=== PATIENT | female | born 1980 | race Caucasian/White ===

== ENCOUNTER 2017-02-24 22:05 | Emergency (ER) | payer OTHER ==
[~2017-02-24] VITALS: Ht 170.2 cm; Wt 53.5 kg
--- NOTE | 2017-02-24 22:10 | NUR ---
PT WALKED INTO ER C/O EYE DISCHARGE,SORE THROAT, FEVER, PT IS ALERT, ORIENTED X 4, NO RESP DISTRESS NOTED OR REPORTED UPON ASSESSMENT.. MD AT BEDSIDE...
[2017-02-24] MEDS ORDERED: ALPR0.5T PO (22:14)
[2017-02-24] MEDS ORDERED: SULFACETAMIDE SOD 10% OPHT DR 15 ML BOTTLE OP ONE (22:45)
[2017-02-24] MEDS ORDERED: AZITHROMYCIN 250 MG TABLET PO ONE (22:45)
[2017-02-24] MEDS ORDERED: SULFACETAMIDE SOD 10% OPHT DR 15 ML BOTTLE ONE (22:58)
[2017-02-24] MEDS ORDERED: AZITHROMYCIN 250 MG TABLET ONE (22:58)
--- NOTE | 2017-02-24 23:20 | NUR ---
Patient discharged to home in stable conditon. Written and verbal after care instructions given. Patient verbalizes understanding of instructions. PT walked out of ER unassisted with belongings at family at side...
[2017-02-24 23:32] VITALS: BP 126/95
== END 2017-02-24 23:33 | disposition home or self-care (01) ==
LOC: ER 22:14
DX: J02.9 Acute pharyngitis, unspecified (principal); H10.9 Unspecified conjunctivitis; F41.9 Anxiety disorder, unspecified; F17.200 Nicotine dependence, unspecified, uncomplicated
CPT/HCPCS: A4663; Q0144

== ENCOUNTER 2021-07-06 09:30 | Emergency (ER) | payer OTHER ==
[~2021-07-06] VITALS: Ht 167.6 cm; Wt 63.5 kg
[~2021-07-06 09:30] MED LIST: ALPR0.5T PO
[2021-07-06] MEDS ORDERED: ALPR2TAB7 PO (09:48)
[2021-07-06] MEDS ORDERED: FLUO20CA36 PO (09:48)
[2021-07-06] MEDS ORDERED: ALPRAZOLAM 0.5 MG TABLET ONE (10:09)
--- NOTE | 2021-07-06 10:12 | NUR ---
Patient discharged to home in stable condition. Written and verbal after care instructions given. Patient verbalizes understanding of instructions. Stressed follow up or return to ER for worsening s/s.
[2021-07-06] MEDS ORDERED: ALPRAZOLAM 0.25 MG TABLET PO ONE (10:15)
== END 2021-07-06 10:13 | disposition home or self-care (01) ==
LOC: ER 09:31
DX: F41.9 Anxiety disorder, unspecified (principal)
CPT/HCPCS: A4663

== ENCOUNTER 2021-08-15 15:03 | Emergency (ER) | payer OTHER ==
[~2021-08-15] VITALS: Ht 167.6 cm; Wt 63.5 kg
[~2021-08-15 15:03] MED LIST changes: +ALPR2TAB7 PO; +FLUO20CA36 PO
[2021-08-15] MEDS ORDERED: LORAZEPAM 2 MG/1 ML VIAL IM ONE ×2 (15:45)
[2021-08-15] MEDS ORDERED: IV NS 1000 ML 1,000 ML IV ONE (16:00)
[2021-08-15 16:04] LABS: HEMATOCRIT 33.5 % (31.2-41.9); MEAN CORPUSCULAR VOLUME 82.2 fL (75.5-95.3); PLATELET COUNT (AUTO) 359 K/uL (179-408)
[2021-08-15] MEDS ORDERED: LORAZEPAM 2 MG/1 ML VIAL ONE (16:08)
[2021-08-15 16:10] LABS: CARBON DIOXIDE 26 mmol/L (21-32); CHLORIDE 103 mmol/L (98-107); CREATININE 1.1 mg/dL (0.6-1.3); GLUCOSE 96 mg/dL (74-106); POTASSIUM 3.8 mmol/L (3.5-5.1); UREA NITROGEN, BLOOD 11 mg/dL (7-18)
[2021-08-15 16:13] LABS: ETHANOL < 3 MG/DL (0-0)
[2021-08-15 16:15] LABS: ALANINE AMINOTRANSFERASE 81 U/L (14-59); ALKALINE PHOSPHATASE 61 U/L (50-136); ASPARTATE AMINOTRANSFERASE 23 U/L (15-37); BILIRUBIN,DIRECT 0.1 mg/dL (0.0-0.2); BILIRUBIN,TOTAL 0.4 mg/dL (0.2-1.0); CREATINE KINASE, TOTAL 83 U/L (26-192); TOTAL PROTEIN, SERUM 8.2 g/dL (6.4-8.2)
[2021-08-15 16:18] LABS: ACETAMINOPHEN < 2.0 ug/mL (10-30)
[2021-08-15 16:22] LABS: THYROID STIMULATING HORMONE 1.531 mIU/mL (0.358-3.740)
[2021-08-15] MEDS ORDERED: ALPR2TAB7 PO (17:51)
[2021-08-15 17:54] LABS: *BILIRUBIN,URIN NEGATIVE (NEGATIVE); *BLOOD, URINE NEGATIVE (NEGATIVE); *COLOR,URINE LIGHT YELLOW (YELLOW); *KETONES,URINE NEGATIVE (NEGATIVE); *UROBILINOGEN,URINE 0.2 E.U./dl (NORMAL); LEUKOCYTE ESTERASE ,URINE 1+ (NEGATIVE); NITRITE, URINE NEGATIVE (NEGATIVE); UGLUCOSE NEGATIVE (NEGATIVE)
[2021-08-15 17:59] LABS: *CLARITY,URINE SLIGHTLY CLOUDY (CLEAR); BACTERIA,URINE FEW /HPF (NONE SEEN)
[2021-08-15 18:00] LABS: SQUAMOUS EPITHELIAL CELL,UR MANY /HPF (NONE SEEN)
[2021-08-15 18:05] LABS: *AMPHETAMINE, URINE NEGATIVE (NEGATIVE); *CANNABINOID, URINE NEGATIVE (NEGATIVE); *COCCAINE, URINE NEGATIVE (NEGATIVE); *OPIATE, URINE NEGATIVE (NEGATIVE); *PHENCYCLIDINE SCREEN,URINE NEGATIVE (NEGATIVE)
--- NOTE | 2021-08-15 18:08 | NUR ---
Removed IV intact, site okay, bandaged. Gave pt RX and d/c instructions, pt verbalized understanding.
== END 2021-08-15 18:28 | disposition home or self-care (01) ==
LOC: ER 15:12
DX: F41.9 Anxiety disorder, unspecified (principal); R94.31 Abnormal electrocardiogram [ECG] [EKG]; G89.29 Other chronic pain; F32.9 Major depressive disorder, single episode, unspecified; Z79.899 Other long term (current) drug therapy
CPT/HCPCS: 36415; 80048; 80076; 80299; 80307; 80320; 81001; 82550; 84443; 84702; 85025; 87086; 93005; 96361; 96374; 99284; J2060; A4663; G0480

== ENCOUNTER 2022-08-02 03:17 | Emergency (ER) | payer SELFPAY ==
--- NOTE | 2022-08-02 03:38 | NUR ---
Patient was called to be triaged and was asked what is medical complaint but became arguementative with staff member stating "I was seen at [facility] and they did not doing anything for me except give me ativan." Patient left without being triaged or seen by ERMD.
== END 2022-08-02 03:51 | disposition left against medical advice (07) ==
LOC: ER 03:26
DX: Z53.21 Procedure and treatment not carried out due to patient leaving prior to being seen by health care provider (principal)

== ENCOUNTER 2022-09-23 17:22 | Emergency (ER) | payer OTHER ==
[~2022-09-23] VITALS: Ht 172.7 cm; Wt 54.4 kg
--- NOTE | 2022-09-23 19:07 | NUR ---
Received pt. from [facility], stable at this time.
[2022-09-23] MEDS ORDERED: ALPR1TAB2 PO (19:26)
[2022-09-23] MEDS ORDERED: ONDA4TAB5 PO (19:26)
[2022-09-23] MEDS ORDERED: ONDANSETRON ODT 4 MG TAB.RAPDIS SL ONE (19:30)
[2022-09-23] MEDS ORDERED: ALPRAZOLAM 0.25 MG TABLET PO ONE (19:30)
[2022-09-23] MEDS ORDERED: ALPRAZOLAM 0.5 MG TABLET ONE (19:33)
[2022-09-23] MEDS ORDERED: ONDANSETRON ODT 4 MG TAB.RAPDIS ONE (19:33)
[2022-09-23 21:18] VITALS: BP 120/80
== END 2022-09-23 19:40 | disposition home or self-care (01) ==
LOC: ER 17:22
DX: F41.1 Generalized anxiety disorder (principal); F13.239 Sedative, hypnotic or anxiolytic dependence with withdrawal, unspecified; R11.0 Nausea; Z79.899 Other long term (current) drug therapy; G89.29 Other chronic pain; K58.1 Irritable bowel syndrome with constipation
CPT/HCPCS: A4663; Q0162

== ENCOUNTER 2024-05-16 12:34 | Emergency (ER) | payer OTHER ==
[~2024-05-16] VITALS: Ht 170.2 cm; Wt 56.7 kg
[~2024-05-16 12:34] MED LIST changes: +ALPR1TAB2 PO; +CYCL10TA9 PO; +NAPR-1009 PO; +ONDA4TAB5 PO
[2024-05-16] MEDS ORDERED: LORAZEPAM 1 MG TABLET ONE (13:15)
[2024-05-16] MEDS: LORAZEPAM 0.5 MG TABLET PO ONE (13:20)
[2024-05-16 13:49] LABS: CALCIUM 9.4 mg/dL (8.5-10.1); CREATININE 1.1 mg/dL (0.6-1.3); MAGNESIUM 1.8 mg/dL (1.8-2.4); POTASSIUM 3.9 mmol/L (3.5-5.1)
[2024-05-16 14:05] LABS: BASOPHILS % (AUTO) 0.4 % (0.0-2.0); EOSINOPHILS # (AUTO) 0.1 K/uL (0.0-0.7); EOSINOPHILS % (AUTO) 1.2 % (0.0-7.0); HEMATOCRIT 34.6 % (31.2-41.9); HEMOGLOBIN 10.8 g/dL (10.9-14.3); LYMPHOCYTES # (AUTO) 2.6 K/uL (0.8-4.8); LYMPHOCYTES % (AUTO) 40.5 % (20.5-51.5); MEAN CORPUSCULAR HEMOGLOBIN 23.8 uug (24.7-32.8); MEAN CORPUSCULAR HGB CONC 31 g/dL (32.3-35.6); MEAN CORPUSCULAR VOLUME 75.7 fL (75.5-95.3); MONOCYTES # (AUTO) 0.5 K/uL (0.1-1.30); MONOCYTES % (AUTO) 8.4 % (0.0-11.0); NEUTROPHILS # (AUTO) 3.1 K/uL (1.8-8.9); NEUTROPHILS % (AUTO) 49.5 % (38.5-71.5); PLATELET COUNT (AUTO) 305 K/uL (179-408); RED BLOOD CELL COUNT(AUTO) 4.56 MIL/uL (3.63-4.92); RED CELL DISTRIBUTION WIDTH 21.3 % (12.3-17.7); WHITE BLOOD COUNT (AUTO) 6.3 K/uL (3.8-11.8)
[2024-05-16 14:19] LABS: DIFFERENTIAL COMMENT 1
[2024-05-16 14:24] LABS: *BILIRUBIN,URIN 1+ (NEGATIVE); *BLOOD, URINE NEGATIVE (NEGATIVE); *CLARITY,URINE CLEAR (CLEAR); *COLOR,URINE YELLOW (YELLOW); *KETONES,URINE NEGATIVE (NEGATIVE); *PROTEIN,URINE TRACE (NEGATIVE); *UROBILINOGEN,URINE 0.2 E.U./dl (NORMAL); LEUKOCYTE ESTERASE ,URINE NEGATIVE (NEGATIVE); NITRITE, URINE NEGATIVE (NEGATIVE); UGLUCOSE NEGATIVE (NEGATIVE)
[2024-05-16 14:45] LABS: RBC,URINE 0-3 /HPF (0-3); WBC,URINE 0-3 /HPF (0-3)
[2024-05-16 14:46] LABS: BACTERIA,URINE FEW /HPF (NONE SEEN); SQUAMOUS EPITHELIAL CELL,UR MODERATE /HPF (NONE SEEN)
[2024-05-16 14:57] LABS: *URINE HCG, QUAL NEGATIVE (NEGATIVE)
[2024-05-16] MEDS ORDERED: LORA0.5T48 PO (15:28)
[2024-05-16] MEDS ORDERED: MAGNESIUM HYDROXIDE 30 ML LIQUID UDC ONE (15:30)
[2024-05-16 15:31] LABS: *AMPHETAMINE, URINE NEGATIVE (NEGATIVE); *BARBITURATE, URINE NEGATIVE (NEGATIVE); *BENZODIAZEPINE, URINE NEGATIVE (NEGATIVE); *CANNABINOID, URINE NEGATIVE (NEGATIVE); *COCCAINE, URINE NEGATIVE (NEGATIVE); *OPIATE, URINE NEGATIVE (NEGATIVE); *PHENCYCLIDINE SCREEN,URINE NEGATIVE (NEGATIVE); FENTANYL, URINE NEGATIVE (NEGATIVE)
[2024-05-16] MEDS: MAGNESIUM HYDROXIDE 30 ML LIQUID UDC PO ONE (15:32)
[2024-05-16] MEDS ORDERED: SYRI-29 MC (15:38)
[2024-05-16] MEDS ORDERED: CYAN-10 IM (15:38)
[2024-05-16] MEDS ORDERED: CYANOCOBALAMIN 1000 MCG/ML VIAL ONE (15:47)
[2024-05-16] MEDS: CYANOCOBALAMIN 1000 MCG/ML VIAL IM ONE (16:02)
[2024-05-16 16:03] LABS: IRON, SERUM 32 ug/dL (50-175)
[2024-05-16 16:04] VITALS: BP 119/70; O2SAT 99
== END 2024-05-16 16:05 | disposition home or self-care (01) ==
LOC: ER 12:34
DX: F41.9 Anxiety disorder, unspecified (principal); R10.2 Pelvic and perineal pain; F32.A Depression, unspecified; K02.9 Dental caries, unspecified; K59.00 Constipation, unspecified; E55.9 Vitamin D deficiency, unspecified; F17.210 Nicotine dependence, cigarettes, uncomplicated; Z79.899 Other long term (current) drug therapy
CPT/HCPCS: 99284; 80048; 82607; 84703; 83550; 83735; 85025; 36415; 74018; 96372; 80307; 81001; J3420; A4606; A4663

== ENCOUNTER 2024-06-19 22:20 | Emergency (ER) | payer OTHER ==
[~2024-06-19] VITALS: Ht 170.2 cm; Wt 56.7 kg
[~2024-06-19 22:20] MED LIST changes: +CYAN-10 IM; +LORA0.5T48 PO; +SYRI-29 MC
[2024-06-19 23:14] LABS: BASOPHILS # (AUTO) 0.3 K/UL (0.0-0.2); BASOPHILS % (AUTO) 4.6 % (0.0-2.0); DIFFERENTIAL COMMENT 0; EOSINOPHILS % (AUTO) 0.4 % (0.0-7.0); HEMATOCRIT 28.8 % (31.2-41.9); HEMOGLOBIN 9.1 g/dL (10.9-14.3); LYMPHOCYTES # (AUTO) 2.1 K/uL (0.8-4.8); MEAN CORPUSCULAR HEMOGLOBIN 23.6 uug (24.7-32.8); MEAN CORPUSCULAR HGB CONC 31 g/dL (32.3-35.6); MEAN CORPUSCULAR VOLUME 75.2 fL (75.5-95.3); MONOCYTES # (AUTO) 0.5 K/uL (0.1-1.30); NEUTROPHILS # (AUTO) 2.6 K/uL (1.8-8.9); PLATELET COUNT (AUTO) 251 K/uL (179-408); RED BLOOD CELL COUNT(AUTO) 3.84 MIL/uL (3.63-4.92); RED CELL DISTRIBUTION WIDTH 20.6 % (12.3-17.7); WHITE BLOOD COUNT (AUTO) 5.5 K/uL (3.8-11.8)
[2024-06-19 23:23] LABS: ALANINE AMINOTRANSFERASE 18 U/L (14-59); ALBUMIN 3.1 g/dL (3.4-5.0); ALKALINE PHOSPHATASE 52 U/L (50-136); ASPARTATE AMINOTRANSFERASE 5 U/L (15-37); BILIRUBIN,DIRECT 0.1 mg/dL (0.0-0.2); BILIRUBIN,TOTAL 0.2 mg/dL (0.2-1.0); CALCIUM 8.8 mg/dL (8.5-10.1); CARBON DIOXIDE 28 mmol/L (21-32); CREATININE 0.7 mg/dL (0.6-1.3); GLUCOSE 87 mg/dL (74-106); TOTAL PROTEIN, SERUM 6.8 g/dL (6.4-8.2); UREA NITROGEN, BLOOD 12 mg/dL (7-18)
[2024-06-19] MEDS ORDERED: LORAZEPAM 1 MG TABLET ONE (23:27)
[2024-06-19 23:30] LABS: CHLORIDE 105 mmol/L (98-107); POTASSIUM 4.3 mmol/L (3.5-5.1); SODIUM SERUM 142 mmol/L (136-145)
[2024-06-19] MEDS: LORAZEPAM 0.5 MG TABLET PO ONE (23:32)
[2024-06-20 00:12] LABS: *URINE HCG, QUAL NEGATIVE (NEGATIVE)
[2024-06-20 00:13] LABS: *BILIRUBIN,URIN NEGATIVE (NEGATIVE); *BLOOD, URINE NEGATIVE (NEGATIVE); *CLARITY,URINE CLEAR (CLEAR); *COLOR,URINE YELLOW (YELLOW); *KETONES,URINE NEGATIVE (NEGATIVE); *PROTEIN,URINE NEGATIVE (NEGATIVE); *UROBILINOGEN,URINE 0.2 E.U./dl (NORMAL); LEUKOCYTE ESTERASE ,URINE NEGATIVE (NEGATIVE); NITRITE, URINE NEGATIVE (NEGATIVE); PH,URINE 5.5 (5.0-8.0); UGLUCOSE NEGATIVE (NEGATIVE)
[2024-06-20] MEDS ORDERED: HYDR-501 PO (00:48)
[2024-06-20] MEDS ORDERED: LORA0.5T48 PO (00:48)
[2024-06-20] MEDS ORDERED: CYAN-10 IM (00:50)
[2024-06-20] MEDS ORDERED: SYRI-29 MC (00:50)
[2024-06-20 01:05] VITALS: BP 109/81; TEMP 98; O2SAT 99
== END 2024-06-20 01:07 | disposition home or self-care (01) ==
LOC: ER 22:23
DX: F19.239 Other psychoactive substance dependence with withdrawal, unspecified (principal); R07.89 Other chest pain; K59.00 Constipation, unspecified; R10.2 Pelvic and perineal pain; R39.15 Urgency of urination; D50.9 Iron deficiency anemia, unspecified; F41.9 Anxiety disorder, unspecified; F17.200 Nicotine dependence, unspecified, uncomplicated; Z79.891 Long term (current) use of opiate analgesic; Z98.890 Other specified postprocedural states; Z79.899 Other long term (current) drug therapy; Z60.2 Problems related to living alone
CPT/HCPCS: 36415; 71045; 83690; 84484; 84703; 85025; 93005; A4606; A4663

== ENCOUNTER 2024-07-15 22:42 | Emergency (ER) | payer OTHER ==
[~2024-07-15] VITALS: Ht 172.7 cm; Wt 54.4 kg
[~2024-07-15 22:42] MED LIST changes: +HYDR-501 PO
[2024-07-15] MEDS ORDERED: LORAZEPAM 0.5 MG TABLET ONE (23:34)
[2024-07-15] MEDS: ACETAMINOPHEN 500 MG TABLET PO ONE (23:36)
[2024-07-15] MEDS: LORAZEPAM 0.5 MG TABLET PO ONE (23:36)
[2024-07-15 23:54] LABS: *BILIRUBIN,URIN NEGATIVE (NEGATIVE); *BLOOD, URINE NEGATIVE (NEGATIVE); *CLARITY,URINE CLEAR (CLEAR); *COLOR,URINE YELLOW (YELLOW); *KETONES,URINE NEGATIVE (NEGATIVE); *PROTEIN,URINE NEGATIVE (NEGATIVE); *UROBILINOGEN,URINE 0.2 E.U./dl (NORMAL); LEUKOCYTE ESTERASE ,URINE NEGATIVE (NEGATIVE); NITRITE, URINE NEGATIVE (NEGATIVE); UGLUCOSE NEGATIVE (NEGATIVE)
[2024-07-15 23:55] LABS: *URINE HCG, QUAL NEGATIVE (NEGATIVE)
[2024-07-15 23:57] LABS: CALCIUM 8.9 mg/dL (8.5-10.1); POTASSIUM 3.8 mmol/L (3.5-5.1)
[2024-07-16 00:02] LABS: ALBUMIN 3.1 g/dL (3.4-5.0); BILIRUBIN,TOTAL 0.3 mg/dL (0.2-1.0); TOTAL PROTEIN, SERUM 6.8 g/dL (6.4-8.2)
[2024-07-16 00:14] LABS: BASOPHILS % (AUTO) 0.4 % (0.0-2.0); EOSINOPHILS # (AUTO) 0.1 K/uL (0.0-0.7); EOSINOPHILS % (AUTO) 1.4 % (0.0-7.0); HEMATOCRIT 29.3 % (31.2-41.9); LYMPHOCYTES # (AUTO) 2.8 K/uL (0.8-4.8); LYMPHOCYTES % (AUTO) 53.5 % (20.5-51.5); MEAN CORPUSCULAR HEMOGLOBIN 23.2 uug (24.7-32.8); MEAN CORPUSCULAR HGB CONC 31 g/dL (32.3-35.6); MEAN CORPUSCULAR VOLUME 75.4 fL (75.5-95.3); MONOCYTES # (AUTO) 0.5 K/uL (0.1-1.30); MONOCYTES % (AUTO) 9.5 % (0.0-11.0); NEUTROPHILS # (AUTO) 1.9 K/uL (1.8-8.9); NEUTROPHILS % (AUTO) 35.2 % (38.5-71.5); PLATELET COUNT (AUTO) 247 K/uL (179-408); RED BLOOD CELL COUNT(AUTO) 3.89 MIL/uL (3.63-4.92); RED CELL DISTRIBUTION WIDTH 19.8 % (12.3-17.7); WHITE BLOOD COUNT (AUTO) 5.3 K/uL (3.8-11.8)
[2024-07-16 00:15] LABS: DIFFERENTIAL COMMENT 1
[2024-07-16] MEDS ORDERED: LACT10SO58 PO (00:30)
[2024-07-16] MEDS ORDERED: FERR220S6 PO (00:30)
[2024-07-16 00:37] VITALS: BP 110/71; TEMP 98.6; O2SAT 100
== END 2024-07-16 00:37 | disposition home or self-care (01) ==
LOC: ER 22:44
DX: F41.9 Anxiety disorder, unspecified (principal); R07.89 Other chest pain; K59.00 Constipation, unspecified; R10.2 Pelvic and perineal pain; E86.0 Dehydration; D64.9 Anemia, unspecified; F17.200 Nicotine dependence, unspecified, uncomplicated; Z98.890 Other specified postprocedural states; Z79.891 Long term (current) use of opiate analgesic; Z79.899 Other long term (current) drug therapy
CPT/HCPCS: 36415; 84484; 84703; 85025; A4606; A4663; A9150